=== PATIENT | female | born 1970 | race Caucasian/White ===

== ENCOUNTER 2021-10-04 13:02 | Emergency (ER) | payer OTHER ==
[~2021-10-04] VITALS: Ht 154.9 cm; Wt 41.7 kg
[2021-10-04] MEDS ORDERED: ESTR0.624 PO (13:25)
== END 2021-10-04 16:46 | disposition home or self-care (01) ==
LOC: ER 13:02
DX: R10.84 Generalized abdominal pain (principal); Z20.822 Contact with and (suspected) exposure to COVID-19